=== PATIENT | male | born 1950 | race Caucasian/White ===

== ENCOUNTER 2018-04-30 19:31 | Emergency (ER) | payer MEDICARE ==
[~2018-04-30] VITALS: Ht 182.9 cm; Wt 79.0 kg
[2018-04-30] MEDS ORDERED: BLOOD THINNER PO (19:51)
[2018-04-30] MEDS ORDERED: BP MED PO (19:51)
[2018-04-30 22:18] LABS: EOSINOPHILS % (AUTO) 3.8 % (1.0-6.0); HEMATOCRIT 37.7 % (41-53); HEMOGLOBIN 12.8 g/dL (13.5-17.5); LYMPHOCYTES # (AUTO) 2.3 K/uL (1.0-4.8); LYMPHOCYTES % (AUTO) 22.6 % (22.0-44.0); MEAN CORPUSCULAR HEMOGLOBIN 30.2 pg (26.0-34.0); MEAN CORPUSCULAR HGB CONC 34.1 G/dL (31.0-37.0); MEAN CORPUSCULAR VOLUME 89 fL (80-100); MONOCYTES % (AUTO) 9.9 % (2.0-9.0); NEUTROPHILS # (AUTO) 6.5 K/uL (1.8-7.7); NEUTROPHILS % (AUTO) 62.7 % (40.0-70.0); PLATELET COUNT (AUTO) 211 K/uL (150-450); RED BLOOD CELL COUNT(AUTO) 4.25 MIL/uL (4.50-5.90); RED CELL DISTRIBUTION WIDTH 13.8 % (11.5-14.5)
[2018-04-30 22:28] LABS: CALCIUM, TOTAL 8.5 mg/dL (8.8-10.5); CREATININE 1.21 mg/dL (0.60-1.30)
[2018-04-30] MEDS ORDERED: IOVERSOL 320 MG/ML 100 ML VIAL ONE (23:06)
[2018-04-30] MEDS ORDERED: SODIUM CHLORIDE 0.9% 100 ML ONE (23:06)
[2018-05-01 01:48] VITALS: BP 142/87
== END 2018-05-01 01:53 | disposition home or self-care (01) ==
LOC: EMS 19:50
DX: K11.20 Sialoadenitis, unspecified (principal); I10 Essential (primary) hypertension; J44.9 Chronic obstructive pulmonary disease, unspecified; F17.210 Nicotine dependence, cigarettes, uncomplicated
CPT/HCPCS: 36415; 70491; 80048; 85025; 99285; J7050; Q9967